=== PATIENT | male | born 1995 | race Two or more races ===

== ENCOUNTER 2021-06-17 08:43 | Emergency (ER) | payer OTHER ==
[~2021-06-17] VITALS: Ht 175.3 cm; Wt 64.4 kg
[2021-06-17 08:52] VITALS: BP 130/73
[2021-06-17] MEDS ORDERED: ACET-10509 PO ×2 (09:04→09:12)
[2021-06-17] MEDS ORDERED: SULF-59 PO ×2 (09:04→09:12)
--- NOTE | 2021-06-17 09:15 | NUR ---
Patient discharged with v/s stable. Written and verbal after care instructions given and explained. Patient alert, oriented and verbalized understanding of instructions. Ambulatory with steady gait. All questions addressed prior to discharge. ID band removed. Patient advised to follow up with PMD. Rx of Bactrim, Tylenol given. Patient educated on indication of medication including possible reaction and side effects. Opportunity to ask questions provided and answered.
== END 2021-06-17 09:15 | disposition home or self-care (01) ==
LOC: MED 08:43
DX: S70.361A Insect bite (nonvenomous), right thigh, initial encounter (principal); Z79.899 Other long term (current) drug therapy
CPT/HCPCS: 99283